=== PATIENT | female | born 1965 | race African-American/Black ===

== ENCOUNTER 2021-06-23 18:53 | Emergency (ER) | payer OTHER ==
[~2021-06-23] VITALS: Ht 149.9 cm; Wt 63.5 kg
--- NOTE | 2021-06-23 19:44 | NUR ---
PATIENT BIBS C/O LEFT HIP PAIN S/P 4 HOUR FLIGHT FROM [place]. PATIENT TOOK A TYLENOL AT 2PM [place]. PATIENT ALERT AND ORIENTED X4. AMBULATORY WITH NON LABORED BREATHING. PLACED PATIENT IN BED 02.
--- NOTE | 2021-06-23 20:08 | NUR ---
US AT BEDSIDE
[2021-06-23] MEDS ORDERED: HYDROCODONE/APAP 10/325MG TABLET ONE (21:39)
[2021-06-23] MEDS ORDERED: HYDROCODONE/APAP 10/325MG TABLET PO ONE (22:00)
[2021-06-23] MEDS ORDERED: TRAM50TA2 PO (23:01)
--- NOTE | 2021-06-23 23:07 | NUR ---
Patient discharged to home in stable condition. Written and verbal after care instructions given. Patient verbalizes understanding of instruction. PT ambulatory with a steady gait.
[2021-06-23 23:10] VITALS: BP 144/89
== END 2021-06-23 23:07 | disposition home or self-care (01) ==
LOC: ER 18:55
DX: R10.30 Lower abdominal pain, unspecified (principal); D25.9 Leiomyoma of uterus, unspecified; M25.552 Pain in left hip
CPT/HCPCS: 72192-TC; 93971-TC